=== PATIENT | male | born 1995 | race Hispanic/Latino ===

== ENCOUNTER → 2018-01-01 | Outpatient (CLI) | payer OTHER ==
--- NOTE | 2018-01-01 12:23 | Diagnostic Imaging Report ---
PROCEDURE:X-RAY ABDOMEN - KUB COMPARISON:KUB 03/31/2017. INDICATIONS:CALCULUS OF KIDNEY FINDINGS: Multiple left paraspinal surgical clips.. 1.3 cm calcific density projects adjacent to the lateral margin of the left 12th rib, unchanged, and possibly representing a renal calculus. No additional calcifications project over the renal shadows or expected ureteral courses Bowel gas pattern is nonobstructive. Regional skeletal structures are intact. CONCLUSION: 1.3 cm ovoid calculus projects over the left renal shadow. Otherwise no plain film evidence of urolithiasis. Dictated by: Adan Guillermo M.D. on 01/01/2018 at 12:28 Electronically approved by: Adan Guillermo M.D. on 01/01/2018 at 12:28
== END ==
LOC: RAD 11:45
PROVIDERS: ATTEND Urology
DX: N20.0 Calculus of kidney (principal)
CPT/HCPCS: 74018

== ENCOUNTER → 2018-05-06 | Outpatient (CLI) | payer OTHER ==
--- NOTE | 2018-05-06 10:11 | Diagnostic Imaging Report ---
EXAMINATION: CT of the abdomen and pelvis without contrast. TECHNIQUE: Spiral CT images of the abdomen and pelvis were performed from the lung bases to the lesser trochanters. No intravenous contrast was given per renal stone protocol. Coronal and sagittal reformatted images were obtained. COMPARISON: 09/10/2016 CLINICAL HISTORY:Renal stones DISCUSSION: ABSENCE OF INTRAVENOUS CONTRAST DECREASES SENSITIVITY FOR DETECTION OF FOCAL LESIONS AND VASCULAR PATHOLOGY. ABDOMEN/PELVIS: LOWER THORAX: 4 mm groundglass nodule laterally within the left lower lobe is unchanged relative to 09/10/2016. Otherwise unremarkable. HEPATOBILIARY:No focal hepatic lesions. No biliary ductal dilation. The gallbladder is normal. SPLEEN: No splenomegaly. PANCREAS: No focal masses or ductal dilatation. ADRENALS: No adrenal nodules. KIDNEYS/URETERS: Severe left hydronephrosis is unchanged. 1.1 cm nonobstructing calculus in the dependent portion of the interpolar collecting system is new compared to September 18, 2016. Nonobstructing left upper pole renal calculi measure 2 mm and 3 mm, respectively as seen on series 3 image 52. Previously described ureterovesical junction calculus is no longer visualized. Surgical clips adjacent to the ureteropelvic junction are unchanged in appearance. The right kidney is unremarkable. No additional renal, ureteral, or bladder calculi. PELVIC ORGANS/BLADDER: Urinary bladder is unremarkable. Prostate and seminal vesicles appear normal. PERITONEUM/RETROPERITONEUM: No ascites or pneumoperitoneum. LYMPH NODES: No pelvic sidewall, retroperitoneal, or mesenteric lymphadenopathy. VESSELS: Limited evaluation without intravenous contrast. The abdominal aorta is nonaneurysmal. GI TRACT: The large bowel shows no evidence of distention or wall thickening. Gas and fecal material are noted throughout. The appendix is normal. No small bowel dilatation to suggest obstruction. BONES AND SOFT TISSUES: No focal soft tissue abnormalities. No osseous destructive lesions. IMPRESSION: Severe chronic left hydroureteronephrosis, without appreciable interval change in degree relative to 09/10/2016, though the previously described 9 mm ureterovesical junction calculus is no longer present. 11 mm nonobstructing left interpolar renal calculus is new compared to 09/10/2016. Additional nonobstructing left renal calculi as above. Surgical clips are again noted in the region of the ureteropelvic junction. No right renal calculi or hydronephrosis. Signed by: Dr. Adan Guillermo M.D. on 05/06/2018 10:07 AM
== END ==
LOC: CT 08:55
PROVIDERS: ATTEND Urology
DX: N20.0 Calculus of kidney (principal)
CPT/HCPCS: 74176

== ENCOUNTER → 2018-05-24 | Day surgery (SDC) | payer OTHER ==
[~2018-05-24] MED LIST: BELLADONNA/OPIUM 30 MG SUPP RC ONE; CEFTRIAXONE SOD 1 GM/NS 50 ML 50 ML IV ONE; DEXAMETHASONE SOD PHOS INJ 4 MG/ML VIAL ONE; FENTANYL CITRATE/PF 100MCG/2 ML INJ ONE; IOPAMIDOL 610MG/1ML 300 MG/ML VIAL IV ONE; LIDOCAINE HCL 2% LOCAL INJ 5 ML SDV VIAL INJ ONE; MEPERIDINE HCL INJ 25 MG/ML VIAL ONE; MIDAZOLAM HCL 2 MG/2 ML VIAL ONE; ONDANSETRON HCL INJ 2MG/ML 2ML 2 MG/ML VIAL ONE; PROPOFOL IV EMULSION 10 MG/ML 20 ML VIAL ONE; SEVOFLURANE INHAL SOLN 250 ML PEN BTL ONE
--- OUTSIDE RECORDS SUMMARY | 2018-05-24 06:03 | XMS REPORT ---
Author Author [facility] Address Unknown Phone Unavailable Care Team Providers Care Roads Supervisor Name Role Phone KELLIE TOBAR Unavailable Unavailable Problems This patient has no known problems. Allergies, Adverse Reactions, Alerts This patient has no known allergies or adverse reactions. Medications This patient has no known medications. Results Test Description Test Time Test Comments Text Results Atomic Results Result Comments CT ABDOMEN/PELVIS WO 2018-05-06 09:57:00 [place] [address] Patient Name: MARY HARGROVE MR #: [id number] : 1995 Age/Sex: 22/M Req #: [id number] [facility] Physician: Ordered by: KELLIE TOBAR MD Report #: [id number] Location: CT Room/Bed: Procedure: [id number] CT/CT ABDOMEN/PELVIS WO Exam Date: 05/06/18 Exam Time: 0920 REPORT STATUS: Signed EXAMINATION: CT of the abdomen and pelvis without contrast. TECHNIQUE: Spiral CT images of the abdomen and pelvis were performed from the lung bases to the lesser trochanters. No intravenous contrast was given per renal stone protocol. Coronal and sagittal reformatted images were obtained. COMPARISON: 09/10/2016 CLINICAL HISTORY:Renal stones DISCUSSION: ABSENCE OF INTRAVENOUS CONTRAST DECREASES SENSITIVITY FOR DETECTION OF FOCAL LESIONS AND VASCULAR PATHOLOGY. ABDOMEN/PELVIS: LOWER THORAX: 4 mm groundglass nodule laterally within the left lower lobe is unchanged relative to 09/10/2016. Otherwise unremarkable. HEPATOBILIARY:No focal hepatic lesions. No biliary ductal dilation. The gallbladder is normal. SPLEEN: No splenomegaly. PANCREAS: No focal masses or ductal dilatation. ADRENALS: No adrenal nodules. KIDNEYS/URETERS: Severe left hydronephrosis is unchanged. 1.1 cm nonobstructing calculus in the dependent portion of the interpolar collecting system is new compared to September 18, 2016. Nonobstructing left upper pole renal calculi measure 2 mm and 3 mm, respectively as seen on series 3 image 52. Previously described ureterovesical junction calculus is no longer visualized. Surgical clips adjacent to the ureteropelvic junction are unchanged in appearance. The right kidney is unremarkable. No additional renal, ureteral, or bladder calculi. PELVIC ORGANS/BLADDER: Urinary bladder is unremarkable. Prostate and seminal vesicles appear normal. PERITONEUM/RETROPERITONEUM: No ascites or pneumoperitoneum. LYMPH NODES: No pelvic sidewall, retroperitoneal, or mesenteric lymphadenopathy. VESSELS: Limited evaluation without intravenous contrast. The abdominal aorta is nonaneurysmal. GI TRACT: The large bowel shows no evidence of distention or wall thickening. Gas and fecal material are noted throughout. The appendix is normal. No small bowel dilatation to suggest obstruction. BONES AND SOFT TISSUES: No focal soft tissue abnormalities. No osseous destructive lesions. IMPRESSION: Severe chronic left hydroureteronephrosis, without appreciable interval change in degree relative to 09/10/2016, though the previously described 9 mm ureterovesical junction calculus is no longer present. 11 mm nonobstructing left interpolar renal calculus is new compared to 09/10/2016. Additional nonobstructing left renal calculi as above. Surgical clips are again noted in the region of the ureteropelvic junction. No right renal calculi or hydronephrosis. Signed by: Dr. Radha Verde M.D. on 05/06/2018 10:07 AM Dictated By: RADHA VERDE MD [id number] Transcribed By: NHAN on 05/06/18 1007 COPY TO: KELLIE TOBAR MD [facility] 2018-01-01 12:28:00 [place] [address] Patient Name: MARY HARGROVE MR #: [id number] : 1995 Age/Sex: 22/M Req #: [id number] Adm Physician: Ordered by: KELLIE TOBAR MD Report #: [id number] Location: [facility] Room/Bed: Procedure: [id number] DX/ABDOMEN-1VIEW (KUB) Exam Date: 01/01/18 Exam Time: 1150 REPORT STATUS: Signed PROCEDURE: X-RAY ABDOMEN - KUB COMPARISON: KUB 03/31/2017. INDICATIONS: CALCULUS OF KIDNEY FINDINGS: Multiple left paraspinal surgical clips.. 1.3 cm calcific density projects adjacent to the lateral margin of the left 12th rib, unchanged, and possibly representing a renal calculus. No additional calcifications project over the renal shadows or expected ureteral courses Bowel gas pattern is nonobstructive. Regional skeletal structures are intact. CONCLUSION: 1.3 cm ovoid calculus projects over the left renal shadow. Otherwise no plain film evidence of urolithiasis. Dictated by: Radha Verde M.D. on 01/01/2018 at 12:28 Electronically approved by: Radha Verde M.D. on 01/01/2018 at 12:28 Dictated By: RADHA VERDE MD 1228 Transcribed By: SKYLAR on 01/01/18 1228 COPY TO: KELLIE TOBAR MD ABDOMEN-1VIEW (KUB) [place] [address] Patient Name: MARY HARGROVE MR #: [id number] : 1995 Age/Sex: 21/M Req #: [id number] [facility] Physician: Ordered by: KELLIE TOBAR MD Report #: [id number] Location: [facility] Room/Bed: Procedure: [id number] DX/ABDOMEN-1VIEW (KUB) Exam Date: 03/31/17 Exam Time: 1544 REPORT STATUS: Signed PROCEDURE: X-RAY ABDOMEN - KUB COMPARISON: CT dated 09/10/16 INDICATIONS: HISTORY OF KIDNEY STONES FINDINGS: There is a non- obstructed bowel-gas pattern. There are no calcifications projected over the renal shadows, expected course of the ureters or bladder. Right pelvic phlebolith. Subcentimeter left renal calculi and obstructive left ureterovesical junction calculus, seen on prior CT, are not visualized on today's exam. There are no acute osseous abnormalities. The lung bases are clear. Surgical clips overlying the left psoas muscle. CONCLUSION: No nephrolithiasis visualized on today's exam. If there is high clinical concern, consider obtaining renal stone protocol CT for better evaluation. Nonobstructive bowel gas pattern. Dictated by: Aristides Rubio M.D. on 03/31/2017 at 16:21 Electronically approved by: Aristides Rubio M.D. on 03/31/2017 at 16:21 Dictated By: ARISTIDES RUBIO MD 20 Transcribed By: SKYLAR on 03/31/171620 COPY TO: KELLIE TOBAR MD
[2018-05-24 06:56] LABS: BASOPHILS % 0.4 % (0.0-1.0); EOSINOPHILS # (AUTO) 0.4 (0.0-0.4); EOSINOPHILS % 5.2 % (0.0-6.0); HEMATOCRIT 49.1 % (38.2-49.6); HEMOGLOBIN 16.9 g/dL (14.0-18.0); LYMPHOCYTES # (AUTO) 2.3 (1.0-3.2); LYMPHOCYTES % 28.8 % (18.0-39.1); MEAN CORPUSCULAR HGB CONC 34.4 g/dL (31-35); MEAN CORPUSCULAR VOLUME 87.2 fL (81-99); MONOCYTES # (AUTO) 0.7 (0.2-0.8); MONOCYTES % 8.6 % (4.4-11.3); NEUTROPHILS # (AUTO) 4.6 (2.1-6.9); NEUTROPHILS % 56.5 % (38.7-80.0); PLATELET COUNT 265 x10e3/uL (140-360); RED BLOOD COUNT 5.63 x10e6/uL (4.3-5.7); RED CELL DISTRIBUTION WIDTH 12.5 % (11.7-14.4)
--- NOTE | 2018-05-24 07:02 | Diagnostic Imaging Report ---
ABDOMEN-1VIEW (KUB) Clinical history: Preoperative Technique: AP view abdomen Comparison: CT from 05/06/2018, 01/01/2018 Findings: Abdomen: Nonobstructive bowel gas pattern. Other: Clips overlie the left abdomen. Multiple stones project over the left kidney, the largest 1.4 cm in the left interpolar region. No definite stones seen over the expected ureter. Impression: Left nephrolithiasis. Signed by: Dr Yumiko Benavides MD on 05/24/2018 6:59 AM
[2018-05-24 07:24] LABS: ALANINE AMINOTRANSFERASE 48 IU/L (0-55); ALBUMIN 4.6 g/dL (3.5-5.0); ALBUMIN/GLOBULIN RATIO 1.3 (0.8-2.0); ALKALINE PHOSPHATASE 72 IU/L (40-150); ANION GAP 16.8 mmol/L (8-16); BLOOD UREA NITROGEN 15 mg/dL (7-26); BUN/CREATININE RATIO 14 (6-25); CALCIUM 9.4 mg/dL (8.4-10.2); CARBON DIOXIDE 20 mmol/L (22-29); CHLORIDE 103 mmol/L (98-107); CREATININE, SERUM 1.04 mg/dL (0.72-1.25); EST GLOMERULAR FILTRATION RATE > 60 ML/MIN (60-); GLUCOSE 97 mg/dL (74-118); POTASSIUM 3.8 mmol/L (3.5-5.1); SODIUM 136 mmol/L (136-145)
[2018-05-24 10:35] VITALS: BP 127/78
--- NOTE | 2018-07-26 08:37 | Operative Report ---
DATE OF PROCEDURE: 05/24/2018 SURGEON: Paramjit Lara MD PREOPERATIVE DIAGNOSES: 1. Left nephrolithiasis. 2. Potential for renal colic. 3. Hydronephrosis. POSTOPERATIVE DIAGNOSES: 1. Left nephrolithiasis. 2. Potential for renal colic. 3. Hydronephrosis. OPERATIONS PERFORMED: 1. Cystourethroscopy with bilateral ureteral catheterization and retrograde urethrography ( performed to evaluate renal colic). 2. Interpretation of retrograde urethrography. 3. Supervision of fluoroscopy, no present. 4. Left-sided extracorporeal shock wave lithotripsy (separate staged procedure performed for the nephrolithiasis). 5. Cystourethroscopy with insertion of left indwelling ureteral stent (this has been performed to manage the hydronephrosis in light of the urolithiasis). ANESTHESIA: General. CLINICAL SUMMARY: Nicola Galvez is a 23-year-old young man with chronic hydronephrosis following a ureteropelvic junction obstruction repair. This left pyeloplasty was performed in 2010. The patient developed nephrolithiasis and was brought for the above procedures. He is aware of the risks of bleeding, infection, injury to adjacent structures, and need for further procedures and elected to proceed. PROCEDURE IN DETAIL: Informed consent was verified. Nicola Galvez was appropriately identified, taken to the operating room, and placed on the lithotripsy table in supine position. Anesthesia was uneventfully begun. The patient's 11 mm left nephrolithiasis was localized with biplanar fluoroscopy. Total of 3000 shocks were delivered with external fragmentation. The patient was then carefully and gently repositioned in dorsal lithotomy position with all pressure points well padded. His genitalia were prepared and draped in the usual sterile fashion. A 22.5-Guatemalan cystoscope sheath with the visual obturator in place was atraumatically inserted into the patient's urethra. He has got an unremarkable urethra through the normal sphincter region through the normal prostate and into the normal bladder. Panendoscopy revealed no suspicion for lesions. No tumors, no stones, and no diverticula. Normally positioned and configured, ureteral orifices were identified. An 8-Gu[place] catheter was used to cannulate each ureter and retrograde ureteropyelograms were performed. Under cystoscopic and fluoroscopic guidance, the left-sided indwelling ureteral stent was then placed. It was coiled in the patient's kidneys as well as the patient's bladder. The retaining suture was cut short. Interpretation of Retrograde Ureteropyelography: Contrast was instilled in a retrograde fashion bilaterally. The right side was unremarkable. There were no tumors, no stones, and no diverticula. Unobstructed drainage was observed fluoroscopically. Left hand side exhibited an excellent uteropelvic junction repair with and anatomically correct funneling from the renal pelvis into the ureter. There was chronic appearing hydronephrosis and chronic appearing calyceal blunting. The stent was in good position. Coiled the patient's kidneys as well as the patient's bladder at the end of the case. The patient's bladder was drained. Cystoscope was withdrawn. Belladonna and Opium suppository were placed revealing a 15 g prostate, smooth, without any nodules. The patient was uneventfully reversed from anesthesia and taken to the recovery room in stable condition. There were no complications during the procedure. He tolerated the procedure well. Plans will be to return the patient to the operating room to remove his stent and hopefully I rendered him stent free and stone free. Paramjit Lara MD [place]/ALENAL /[id number]
== END | disposition home or self-care (01) ==
LOC: OR 06:00
PROVIDERS: ATTEND Urology
DX: N20.0 Calculus of kidney (principal); N13.30 Unspecified hydronephrosis; F84.0 Autistic disorder; Z98.890 Other specified postprocedural states
CPT/HCPCS: 36415; 50590; 52332; 74018; 80053; 83970; 84550; 85025; C2617; J0696; J1100; J2001; J2175; J2250; J2405; J2704; Q9967

== ENCOUNTER → 2018-05-29 | Day surgery (SDC) | payer OTHER ==
--- NOTE | 2018-05-27 18:02 | Diagnostic Imaging Report ---
EXAM: Abdomen 1 Views INDICATION: ^PREOP. Renal stones. Stent. Recent ESWL and stent placement in the left kidney. COMPARISON: KUB 05/24/2018. CT abdomen pelvis 05/06/2018. FINDINGS: New left double-J ureteral stent in place. Previous largest on the left kidney is longer present. Numerous fragmented stones in the left kidney. No definite stones in the left ureter. Surgical clips overlying the left renal hilum. Moderate amount of stool in the colon. No dilated loops of small bowel. No abnormal soft tissue masses. No significant degenerative changes in the lumbar spine and pelvis. IMPRESSION: 1. Fragmented left renal stones, now with multiple smaller stones. No ureteral stones. 2. A left double J ureteral stent in place. Signed by: Dr. Tomer Turner M.D. on 05/27/2018 5:58 PM
[~2018-05-29] MED LIST changes: +GENTAMICIN 80MG/NS 100 ML 100 ML IV ONE; +KETOROLAC TROMETHAMINE 30 MG/ML VIAL ONE
[2018-05-29 17:45] VITALS: BP 124/82
--- NOTE | 2018-07-26 05:57 | Operative Report ---
DATE OF PROCEDURE: 05/29/2018 SURGEON: Paramjit Lara MD PREOPERATIVE DIAGNOSES: 1. Left nephrolithiasis. 2. Left indwelling ureteral stent. POSTOPERATIVE DIAGNOSES: 1. Left nephrolithiasis. 2. Left indwelling ureteral stent. OPERATIONS PERFORMED: Note, these were all staged procedures as part of a multi-stage and multi-step process in managing the patient's urolithiasis. 1. Cystourethroscopy with complicated removal of left indwelling ureteral stent ( performed separate scope for the diagnosis of the stent). 2. Repeated left ureteropyeloscopy with stone manipulation procedures (numerous procedures performed for innumerable stones done with separate scope). 3. Urological Services for supervision and interpretation of ureteroscopy. 4. Interpretation of retrograde ureteropyelography. 5. Supervision of fluoroscopy, no radiologist was present. ANESTHESIA: General. COMPLICATIONS: None. CLINICAL SUMMARY: Nicola Galvez is a 23-year-old man, who is status post pyeloplasty. He has had recurrent stone disease and he underwent ESWL. Ureteral stent was placed at that time due to the size of the stone. The patient was brought to the operating room today to hopefully render him stent free and stone free. He and the family are aware of the risks of bleeding, infection, injury to adjacent structures, and need for additional procedures, and they elected to proceed. PROCEDURE IN DETAIL: Informed consent was verified. Nicola Galvez was preoperatively identified, taken to the operating room, and placed on a cystoscopy table in supine position. Anesthesia was uneventfully began. The patient was then carefully and gently re-positioned in the dorsal lithotomy position with all pressure points well padded. His genitalia were prepared and draped in the usual sterile fashion. A 22.5-Kosovan cystoscope sheath with the visual obturator in place was atraumatically inserted into the patient's urethra. It was guided on the unremarkable urethra through the normal sphincteric region, through the normal prostate bed until we entered the patient's bladder. We identified a stent emerging from the left ureteral orifice. The guidewire was then placed along side of stent and guided through the level of the patient's kidney. The stent was then grasped, completely removed, and then discarded. Flexible ureteroscope was then placed over the guidewire and guided at the level of the patient's kidney. Panendoscopy revealed numerous stones. We utilized a secondary guidewire in performing these procedures. We grasped stones with nitinol tipless basket and atraumatically extracted them. We then utilized a secondary guidewire to regain access and we performed this procedure repeatedly with the aid of a flexible ureteroscopy sheath in order to render the patient stone-free; only verifying sand remained, but it was irrigated to manipulate it free from the overlying mucosa. present throughout the patient's papilla. The procedure was rather extensive due to numerous number of times the ureteroscopy was necessary in order to remove all the stones present. Interpretation of Retrograde Ureteropyelography: Contrast was instilled in a retrograde fashion on the left-hand side. There was chronic appearing hydronephrosis with chronic calyceal blunting. The ureteropelvic junction was unobstructed. Unobstructed drainage was observed fluoroscopically. Once the patient's bladder was drained, the cystoscope was withdrawn. The Belladonna and Opium suppository was placed revealing a 15 g prostate nodules. The patient was then uneventfully reversed from anesthesia and taken to the recovery room in stable condition. Exclusive postoperative instructions were given and the patient will be followed in the office. Paramjit Lara MD [place]/MODL /[id number] cc: August Bass
== END | disposition home or self-care (01) ==
LOC: OR 09:30
PROVIDERS: ATTEND Urology
DX: N20.0 Calculus of kidney (principal); N13.30 Unspecified hydronephrosis; Z46.6 Encounter for fitting and adjustment of urinary device; F84.0 Autistic disorder; Z98.890 Other specified postprocedural states
CPT/HCPCS: 52352; 74018; 74420; 88300; C1758; C1766; J0696; J1100; J1580; J1885; J2001; J2175; J2250; J2405; J2704; Q9967

== ENCOUNTER → 2018-07-21 | Outpatient (CLI) | payer OTHER ==
--- NOTE | 2018-07-21 10:58 | Diagnostic Imaging Report ---
EXAM: ABDOMEN-1VIEW (KUB) DATE: 07/21/2018 9:52 AM INDICATION: Kidney stone COMPARISON: KUB, 05/27/2018 FINDINGS: 2 supine views of the abdomen show a normal distribution of air in the small and large bowel. Since previous exam left double-J ureteral stent has been removed. An 11 mm calcification, or cluster of calculus fragments, is seen at the lower pole left kidney. The right kidney and upper portion of left kidney are largely obscured by overlying bowel. Again noted are multiple surgical clips medial to the lower pole of the left kidney. There are no obvious calculi along the expected path of either ureter. Bilateral sacralization of L5 is incidentally noted. A phlebolith is seen in the right hemipelvis. IMPRESSION: 1. At the lower pole left kidney there is an 11 mm calculus or cluster of calculus fragments. 2. Left double-J ureteral stent has been removed since last exam. Signed by: Dr. Bola Christian M.D. on 07/21/2018 10:55 AM
== END ==
LOC: RAD 09:43
PROVIDERS: ATTEND Urology
DX: N20.0 Calculus of kidney (principal)
CPT/HCPCS: 74018